=== PATIENT | female | born 1950 | race Caucasian/White ===

== ENCOUNTER 2019-03-15 12:56 | Outpatient (CLI) | payer MEDICARE ==
[2019-03-15] MEDS ORDERED: BARIUM SULFATE 135 ML BOTTLE PO ONE (14:58)
--- NOTE | 2019-03-18 13:30 | DEXA Report ---
Reason: POSTMENOPAUSAL Procedure Date: 03/15/2019 Accession Number: [id number] / [id number] Procedure: DEX - Dexa Spine and/or Hip CPT Code: Final Report FULL RESULT: EXAM: Dexa Spine and/or Hip DATE: 03/15/2019 4:30 PM CLINICAL HISTORY: POSTMENOPAUSAL. History of stroke and steroid use TECHNIQUE: Dual energy x-ray absorptiometry (DXA) was performed on a [employer] System. Regions measured are the AP Spine, femoral neck, and if needed forearm. COMPARISON: None. In accordance with the International Society for Clinical Densitometry (ISCD) guidelines, data from previous exams may be reanalyzed using current recommendations and techniques. This is done to allow a more accurate basis for comparison with the current study. FINDINGS: The data for the lumbar spine is as follows: BMD (g/cm/cm) T-SCORE Z-SCORE REGION L1 0.828 -2.5 -0.7 L2 0.896 -2.6 -0.8 L3 1.006 -1.7 0.2 L4 1.042 -1.4 0.5 TOTAL 0.989 -2.0 -0.2 NOTE: All evaluable vertebrae are used for classification The data for the hip is as follows: BMD (g/cm/cm) T-SCORE Z-SCORE REGION Neck 0.627 -3.0 -1.3 TOTAL 0.620 -3.1 -1.6 NOTE: The femoral neck or total proximal femur, whichever is lowest, is used for classification. IMPRESSION: THE WHO CLASSIFICATION BASED ON THE INTERNATIONAL REFERENCE STANDARD IS OSTEOPOROSIS. THE FRACTURE RISK IS HIGH. RECOMMENDATION: Patients with diagnosis of osteoporosis or osteopenia should have regular bone mineral density assessment. For those eligible for Medicare, routine testing is allowed once every 2 years. Testing frequency can be increased for patients who have rapidly progressing disease or for those who are receiving medical therapy to restore bone mass. COMMENT: World Health Organization (WHO) definitions for osteoporosis and osteopenia: NORMAL BMD: T-score at -1.0 or higher, fracture risk is low OSTEOPENIA BMD: T-score between -1.0 and -2.5, fracture risk is increased. OSTEOPOROSIS BMD: T-score at -2.5 or lower, fracture risk is high. National Osteoporosis Foundation recommends: 1. Obtain adequate dietary calcium (at least 1200 mg per day) and vitamin D (400-800 international units per day). 2. Participate, as appropriate, in regular weightbearing and muscle-strengthening exercise. 3. Avoid tobacco use and reduce alcohol and caffeine intake. 4. For more detailed information see the website at www.NOF.org.
== END 2019-03-15 12:57 | disposition home or self-care (01) ==
LOC: DI 12:56
PROVIDERS: ATTEND Internal Medicine
DX: Z13.820 Encounter for screening for osteoporosis (principal); N95.8 Other specified menopausal and perimenopausal disorders; M81.0 Age-related osteoporosis without current pathological fracture
CPT/HCPCS: 77080; A9270

== ENCOUNTER 2019-07-11 11:42 | Outpatient (CLI) | payer MEDICARE, MEDICAID ==
--- NOTE | 2019-07-11 21:28 | XRAY Report ---
Reason: L RIB PAIN, POSTERIOR Procedure Date: 07/11/2019 Accession Number: [id number] / [id number] Procedure: XR - Ribs 2 View LT CPT Code: Final Report FULL RESULT: EXAM: LEFT RIB RADIOGRAPHY EXAM DATE: 07/11/2019 12:02 PM. CLINICAL HISTORY: L RIB PAIN, POSTERIOR. COMPARISON: None. TECHNIQUE: 2 views. FINDINGS: Bones: Normal. No fracture or bone lesion. Lungs: No focal opacities evident. No pneumothorax or pleural effusions. Mediastinum: Heart and cardiomediastinal contours are unremarkable. Other: None. IMPRESSION: No definite rib fractures. If clinical suspicion is high and important to further evaluate a limited CT scan through the lung bases and upper abdomen might be considered. RADIA
== END 2019-07-11 11:43 | disposition home or self-care (01) ==
LOC: DI 11:42
PROVIDERS: ATTEND Physician Assistant
DX: R07.81 Pleurodynia (principal)

== ENCOUNTER 2019-10-09 15:33 | Outpatient (CLI) | payer MEDICARE, MEDICAID ==
--- NOTE | 2019-10-09 16:40 | CT Report ---
PROCEDURE: CHEST WO INDICATIONS: PULMONARY NODULES TECHNIQUE: Noncontrast 5 mm thick sections acquired from the pulmonary apices to the posterior costophrenic angl es. 7 mm thick coronal and sagittal MIP reformats were then acquired. For radiation dose reduction, the following was used: automated exposure control, adjustment of mA and/or kV according to patient size. COMPARISON: None. FINDINGS: Image quality: Excellent. Lungs and pleura: No acute consolidation. Diffuse peribronchial cuffing suggestive of nonspecific br onchitis and/or reactive airways disease. No pleural effusions or pneumothorax. There are numerous b ilateral sub-5 mm pulmonary nodules as depicted on the montage image. Mediastinum: Heart size is normal. Coronary artery calcifications noted. Small pericardial effusion. No mediastinal adenopathy by size criteria. Thoracic aorta and central pulmonary arteries are norm al in size. Esophagus is normal in caliber. No hiatal hernia. Bones and chest wall: No suspicious bony lesions. No vertebral body compression fractures. No axil baldemar or supraclavicular adenopathy by size criteria. The thyroid is normal in size. Abdomen: Visualized upper abdominal solid organs and bowel loops appear normal in the absence of con trast. IMPRESSION: Numerous bilateral nonspecific sub-5 mm pulmonary nodules most of which seen in the upper lobes. Thes e are technically indeterminate in the absence of any relevant CT studies. Recommend follow-up with C T chest in one year interval to exclude early metastatic or malignant possibilities.. Scattered scarring/atelectasis Diffuse peribronchial cuffing suggestive of nonspecific bronchitis and/or reactive airways disease. Coronary artery disease Mild pericardial effusion Reviewed by: Johnny Morales MD on 10/09/2019 4:39 PM PDT Approved by: Johnny Morales MD on 10/09/2019 4:39 PM PDT Station ID: [id number]
== END 2019-10-09 15:34 | disposition home or self-care (01) ==
LOC: DI 15:33
PROVIDERS: ATTEND Physician Assistant
DX: R91.8 Other nonspecific abnormal finding of lung field (principal); F17.200 Nicotine dependence, unspecified, uncomplicated
CPT/HCPCS: 71250